=== PATIENT | female | born 1970 ===

== ENCOUNTER 2020-12-31 12:31 | Day surgery (SDC) | payer BC ==
[~2020-12-31 12:31] MED LIST: Lactated Ringers 1,000 ML IV SCH; Lidocaine 2% 5 ML SDV ONE; Midazolam 1 MG/ML 2 ML SDV ONE; Propofol 200 MG/20 ML SDV ONE; Sodium Chloride 0.9% 10 ML SDV IV PRN; Sodium Chloride 0.9% 10 ML Syringe FLUSH PRN; Sodium Chloride 0.9% 2.5 ML Syringe FLUSH PRN; fentaNYL 100 MCG/2 ML SDV ONE
--- NOTE | 2020-12-31 13:01 | PCM.PREANE ---
Preanesthetic Assessment - Anesthesia/Transfusion/Family Hx Anesthesia History: Prior Anesthesia Without Reaction Family History of Anesthesia Reaction: No Transfusion History: No Prior Transfusion(s) - Review of Systems General: No Symptoms Pulmonary: No Symptoms Cardiovascular: No Symptoms Gastrointestinal: No Symptoms Neurological: No Symptoms Other: Reports: None - Physical Assessment NPO Status Date: 12/31/20 NPO Status Time: 00:01 Vital Signs: Last Vital Signs Temp 96.6 F L 12/31/20 12:42 Pulse 78 12/31/20 12:42 Resp 15 12/31/20 12:42 BP 154/80 H 12/31/20 12:42 Pulse Ox 98 12/31/20 12:42 Height: 5 ft 8 in Weight: 149 lb ASA Class: 2 Mental Status: Alert & Oriented x3 Airway Class: Mallampati = 2 Dentition: Reports: Normal Dentition ROM/Head Extension: Limited/Partial Lungs: Clear to Auscultation, Normal Respiratory Effort Cardiovascular: Regular Rate, Regular Rhythm - Allergies Allergies/Adverse Reactions: Allergies Allergy/AdvReac Type Severity Reaction Status Date / Time latex Allergy Rash Verified 12/25/20 10:26 Sulfa (Sulfonamide Allergy Rash Verified 12/25/20 10:27 Antibiotics) - Anesthesia Plan Pre-Op Medication Ordered: None - Acknowledgements Anesthesia Type Planned: General Anesthesia Pt an Appropriate Candidate for the Planned Anesthesia: Yes Alternatives and Risks of Anesthesia Discussed w Pt/Guardian: Yes Pt/Guardian Understands and Agrees with Anesthesia Plan: Yes Additional Comments: npo ruel tob almost 1 ppd etoh rare no cv problems par no questions PreAnesthesia Questionnaire HEENT History: Reports: Other (See Below) Other HEENT History: hx fx jaw Cardiovascular History: Reports: None Respiratory History: Reports: None Gastrointestinal History: Reports: GERD Genitourinary History: Reports: None BACK OFFICE MEDICAL ASSISTANT History: Reports: Musculoskeletal History: Reports: Fracture Neurological History: Reports: None Psychiatric History: Reports: None Endocrine/Metabolic History: Reports: None Hematologic History: Reports: None Immunologic History: Reports: None Oncologic (Cancer) History: Reports: None Dermatologic History: Reports: None - Past Surgical History Head Surgeries/Procedures: Reports: None HEENT Surgical History: Reports: None Cardiovascular Surgical History: Reports: None Respiratory Surgical History: Reports: None GI Surgical History: Reports: None Female Surgical History: Reports: None Endocrine Surgical History: Reports: None Neurological Surgical History: Reports: None Musculoskeletal Surgical History: Reports: ORIF Other Musculoskeletal Surgeries/Procedures:: ORIF right arm fx Oncologic Surgical History: Reports: None Dermatological Surgical History: Reports: None - SUBSTANCE USE Tobacco Use Status *Q: Current Every Day Tobacco User Tobacco Use Within Last Twelve Months: Cigarettes - HOME MEDS Home Medications: Home Meds Pantoprazole Sodium [Protonix] 40 mg PO DAILY 12/25/20 [History] - CURRENT (IN HOUSE) MEDS Current Meds: Current Medications Lactated Ringer's (Ringers, Lactated) 1,000 mls @ 125 mls/hr IV ASDIRECTED NOAH Sodium Chloride (Sodium Chloride 0.9% 10 Ml Sdv) 10 ml IV ASDIRECTED PRN PRN Reason: IV Use Sodium Chloride (Sodium Chloride 0.9% 10 Ml Syringe) 10 ml FLUSH ASDIRECTED PRN PRN Reason: Keep Vein Open Sodium Chloride (Sodium Chloride 0.9% 2.5 Ml Syringe) 2.5 ml FLUSH ASDIRECTED PRN PRN Reason: Keep Vein Open Discontinued Medications Fentanyl (Fentanyl 100 Mcg/2 Ml Sdv) Confirm Administered Dose 100 mcg .ROUTE .STK-MED ONE Stop: 12/31/20 10:03 Lidocaine (Lidocaine 2% 5 Ml Sdv) Confirm Administered Dose 5 ml .ROUTE .STK-MED ONE Stop: 12/31/20 10:03 Midazolam HCl (Midazolam 1 Mg/Ml 2 Ml Sdv) Confirm Administered Dose 2 mg .ROUTE .STK-MED ONE Stop: 12/31/20 11:24 Propofol (Propofol 200 Mg/20 Ml Sdv) Confirm Administered Dose 200 mg .ROUTE .STK-MED ONE Stop: 12/31/20 10:03 Propofol (Propofol 200 Mg/20 Ml Sdv) Confirm Administered Dose 200 mg .ROUTE .STK-MED ONE Stop: 12/31/20 11:25 Propofol (Propofol 200 Mg/20 Ml Sdv) Confirm Administered Dose 200 mg .ROUTE .STK-MED ONE Stop: 12/31/20 11:25
--- NOTE | 2020-12-31 14:22 | PCM.OPNOTE ---
- General Post-Op/Procedure Note Date of Surgery/Procedure: 12/31/20 Operative Procedure(s): Diagnostic EGD and screening colonoscopy with polypectomy Findings: gastritis, ascending colon polyp Pre Op Diagnosis: Heartburn, screening colonoscopy Post-Op Diagnosis: Gastritis, ascending colon polyp Anesthesia Technique: [facility] [place] Primary Surgeon: Gwendolyn Montes Condition: Good
--- NOTE | 2020-12-31 14:54 | PCM.POSTAN ---
POST ANESTHESIA ASSESSMENT - MENTAL STATUS Mental Status: Alert - VITAL SIGNS Vital Signs: Last Vital Signs Temp 36.1 C 12/31/20 14:32 Pulse 65 12/31/20 14:32 Resp 15 12/31/20 14:32 BP 100/71 12/31/20 14:32 Pulse Ox 100 12/31/20 14:32 - RESPIRATORY Respiratory Status: Respiratory Rate WNL - CARDIOVASCULAR CV Status: Pulse Rate WNL - GASTROINTESTINAL GI Status: No Symptoms - POST OP HYDRATION Hydration Status: Adequate & Stable
--- NOTE | 2020-12-31 14:56 | PCM48HPAN ---
Post Anesthesia Note - EVALUATION WITHIN 48HRS OF ANESTHETIC Vital Signs in Normal Range: Yes Patient Participated in Evaluation: Yes Respiratory Function Stable: Yes Airway Patent: Yes Cardiovascular Function Stable: Yes Hydration Status Stable: Yes Pain Control Satisfactory: Yes Nausea and Vomiting Control Satisfactory: Yes Mental Status Recovered: Yes Vital Signs: Last Vital Signs Temp 36.1 C 12/31/20 14:32 Pulse 65 12/31/20 14:32 Resp 15 12/31/20 14:32 BP 100/71 12/31/20 14:32 Pulse Ox 100 12/31/20 14:32
--- NOTE | 2020-12-31 21:30 | OR ---
SURGEON: GWENDOLYN MONTES MD DATE OF PROCEDURE: 12/31/2020 PREOPERATIVE DIAGNOSES: Heartburn, screening colonoscopy. POSTOPERATIVE DIAGNOSES: 1. Gastritis. 2. Ascending colon polyp. PROCEDURES PERFORMED: 1. Diagnostic esophagogastroduodenoscopy. 2. Screening colonoscopy. PRIMARY SURGEON: Gwendolyn Montes MD ANESTHESIA: MAC. INSTRUMENT USED: Olympus endoscope and colonoscope. EXTENT OF EXAM: To the second portion of duodenum, to the cecum. PREPARATION: Good for the EGD, fair for the colonoscopy. LIMITATIONS: None. INDICATIONS FOR EXAMINATION: The patient is a 50-year-old female who presents with ongoing heartburn. She has never had a screening colonoscopy. The patient and I discussed the need for diagnostic EGD and screening colonoscopy. I explained the procedures, expected perioperative course, and the risks. She verbalized understanding and wishes to proceed. PROCEDURE IN DETAIL: The patient was brought to the endoscopy suite and placed in the left lateral decubitus position. A time-out was completed verifying the patient's name, age, date of , allergies, and procedure to be performed. A bite block was placed in the patient's mouth. Monitored anesthesia care was induced and continuous oxygen was provided via nasal cannula throughout the procedure. After adequate sedation was achieved, a well-lubricated endoscope was placed in the patient's mouth and advanced under direct visualization to the second portion of duodenum. This appeared normal and a photograph was taken. The scope was then fully withdrawn while examining the color, texture, anatomy, and integrity of mucosa of the upper GI tract. The duodenum appeared normal. The scope was brought into the stomach, and a photograph was taken of the pylorus and GE junction. Both appeared anatomically normal. There was some evidence of gastritis along the lower half of the stomach. Biopsies were taken of the gastric antrum, body, and fundus and sent for histologic review and H pylori testing. The scope was brought into the distal esophagus and a photograph was taken of the Z-line. This appeared normal. A biopsy was taken 1 cm above the Z- line and sent to Pathology, labeled as esophagus. The remainder of the esophagus was free of pathology. The scope was removed and this portion of procedure terminated. A digital rectal exam was performed. This exam showed mildly enlarged hemorrhoids. A well-lubricated colonoscope was inserted into the rectum and advanced under direct visualization to the level of the cecum. The cecum was identified by both visual and anatomic landmarks. A photograph was taken of the cecal cap as well as with the scope retroflexed in the cecum. The scope was then fully withdrawn while examining the color, texture, anatomy, and integrity of the mucosa from the cecum to the anal canal. The patient had a large amount of liquid stool in the colon. This required a large amount of irrigation, however, I was able to adequately visualize the colonic mucosa. In the mid ascending colon, the patient had a small sessile polyp. This was removed in piecemeal fashion using a cold biopsy forceps and sent to Pathology, labeled as ascending colon polyp. The remainder of the colon appeared normal. The scope was brought into the rectum and retroflexed to allow visualization of the anal canal opening. This appeared normal and a photograph was taken. The scope was then straightened out and fully withdrawn. The cecum to anus time was 10 minutes. The patient tolerated the procedure well and was transferred to PACU in stable condition. ENDOSCOPIC DIAGNOSES: 1. Gastritis. 2. Ascending colon polyp. RECOMMENDATIONS: We will have the patient continue to take her pantoprazole daily. We will visit with her in clinic in 2 weeks to review her biopsy results and determine any next steps in treatment. RUSS RICHARDSON /[id number]
== END 2020-12-31 14:58 | disposition home or self-care (01) ==
LOC: MW.SDS 12:31
PROVIDERS: ATTEND Surgery
DX: Z12.11 Encounter for screening for malignant neoplasm of colon (principal); K63.5 Polyp of colon; K21.9 Gastro-esophageal reflux disease without esophagitis; K31.89 Other diseases of stomach and duodenum; K22.8 Other specified diseases of esophagus; K64.8 Other hemorrhoids; F17.210 Nicotine dependence, cigarettes, uncomplicated; Z88.2 Allergy status to sulfonamides; Z91.040 Latex allergy status; Z79.899 Other long term (current) drug therapy; Z86.16 Personal history of COVID-19
CPT/HCPCS: 43239; 45380; 88305; 88312; J2250; J2704; J7120; 00813; J3010